=== PATIENT | female | born 2000 | race African-American/Black ===

== ENCOUNTER 2023-04-05 12:10 | Emergency (ER) | payer OTHER, SELFPAY ==
[2023-04-05 12:22] VITALS: BP 136/80; PULSE 71; RESP 17; TEMP 37.1; O2SAT 100
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
--- NOTE | 2023-04-05 13:30 | PC.NURSE ---
EUGENIO Burgess and [facility] Advocate arrived at this time, taken to room 18 where pt is resting comfortably on stretcher - introduced to pt and discussing POC at this time.
[2023-04-05] MEDS: cefTRIAXone 1 GM VIAL 0.5 GM IM (16:02)
[2023-04-05] MEDS: LIDOCAINE HCL 1% LOCAL INJ 10 ML VIAL (16:02)
[2023-04-05] MEDS: metroNIDAZOLE 500 MG TABLET PO (16:02)
[2023-04-05] MEDS: DOXYCYCLINE HYCLATE 100 MG TABLET PO (16:02)
[2023-04-05 16:12] VITALS: BP 137/85; PULSE 77; RESP 17; O2SAT 100
[2023-04-05 17:18] LABS: Trichomonas Vag PCR NOT DETECTED (NOT DETECTE)
[2023-04-05 17:40] LABS: Chlamydia trachomatis NOT DETECTED (NOT DETECTE); Neisseria gonorrhoeae PCR NOT DETECTED (NOT DETECTE)
== END 2023-04-05 16:25 | disposition home or self-care (01) ==
PROVIDERS: Emergency Provider Physician Assistant
DX: T74.21XA Adult sexual abuse, confirmed, initial encounter (principal); Y07.9 Unspecified perpetrator of maltreatment and neglect
CPT/HCPCS: 87491; 87591; 87661; 96372; 99285; A9270; J0696